=== PATIENT | male | born 1990 | race Caucasian/White ===

== ENCOUNTER 2017-09-08 15:05 | Observation (INO) | payer MEDICAID, SELFPAY ==
[2017-09-08 15:23] VITALS: BMI 20.5
[2017-09-08 15:29] VITALS: BP 144/102; PULSE 69; RESP 16; TEMP 36.8; O2SAT 100
--- NOTE | 2017-09-08 15:41 | PCM.HP.STD ---
Problem List (1) Opiate abuse, continuous Status: Acute History of Present Illness Date of Admission: 09/08/17 Chief Complaint: For opiate detox The patient is a 26 year old M with no significant past medical history. He was admitted to [facility] for detox from opiates. According to patient the past few years he has been taking about 30 mg of opiates daily. He snorts it and has never used IV. This is first time attempting rehab. He does not use any other drugs and denies use of alcohol, cocaine, heroin, or anything else. Patient started using after he was prescribed Percocet after he had surgery for broken facial bone and broken finger. He is currently unemployed. He has good support from his girlfriend who doesnt use, and none of his family members also use opiates. Review of systems otherwise negative. [] Past Medical History Allergies No Known Allergies Allergy (Verified 09/08/17 15:25) Home Medications: Ambulatory Orders Medication Instructions Recorded NK [NK] 09/08/17 Surgical History: - - finger surgery and surgery for broken facial bone Psychiatric History: No pertinent psych hx Lives: Spouse/ Significant Other, - Smoking Status: Current every day smoker Tobacco Use: Cigarettes Alcohol: None Drugs: - - Percocet - *Family History Maternal History Items: Heart Disease, Hypertension Review of Systems Constitutional: Denies: Chills, Fever, Weight Change Eyes: Reports: Blurred vision HEENT: Denies: Head Aches, Sinus Congestion, Sinus Drainage Cardiovascular: Denies: Chest Pain, Chest Tightness, Palpitations Respiratory: Denies: Cough, Shortness of breath at rest, Sputum production Gastrointestinal: Denies: Abdominal Pain, Constipation, Nausea, Vomiting Genitourinary: Denies: Dysuria Musculoskeletal: Denies: Joint Pain, Joint Tenderness Skin: Denies: Rash, Wounds Neurological: Denies: Numbness, Tingling, Focal weakness Psychiatric: Denies: Anxiety, Depression, Homicidal Ideations, Suicidal Ideations Hematologic/ Lymphatic: Denies: Easy Bruising, Easy Bleeding VTE Information - Inpt Only VTE Present on Admission: No VTE Mechan Device Prophylaxis: None VTE Pharm Prophylaxis ordered?: Yes - Physical Exam General: Alert, Oriented x3, Cooperative, No apparent distress HEENT: Atraumatic, PERRLA, EOMI, Normocephalic Oral: Moist Mucosa Neck: Supple, No JVD, Negative Carotid Bruits Lungs: Clear to auscultation, Normal air movement, No rhonchi, No wheeze, No rales Cardiovascular: Regular rate, Regular Rhythm, Normal S1, Normal S2, No murmurs Abdomen: Bowel Sounds Present, Soft, Non Tender, Non-Distended, No Hepato-splenomegaly, Passing Flatus Extremities: No clubbing, No cyanosis, No edema, Capillary Refill Less than 3 Seconds Skin: No rashes, No breakdown, - - no trackmarks noted. Extensive tattoos Musculoskeletal: No Tenderness to Palpation of Joints or Extremities Lymphatic: No Cervical, Supraclavicular, or Inguinal Adenopathy Neurological: Cranial nerves II-XII grossly intact, Motor Exam 5/5 strength throughout Psych/Mental Status: Normal Affect, Appropriate, Alert and oriented to time, place, person, mood and affect Vital Signs Temp Pulse Resp BP Pulse Ox 98.2 F 69 16 144/102 H 100 09/08/17 15:29 09/08/17 15:29 09/08/17 15:29 09/08/17 15:29 09/08/17 15:29 Oxygen Delivery Method Room Air Weight: 151 lb 0.266 oz Body Mass Index (BMI) 20.5 Assessment/Plan All Active Problems Opiate abuse, continuous (Acute) 26-year-old 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 Opiate abuse Last use around 9 PM yesterday. Uses 30 g of Percocet daily and snorts it. Will admit to [facility] to on the [facility] protocol Will start opiate withdrawal with buprenorphine taper Check CBC and CMP. 2. DVT prophlaxis: lovenox Code status: full code This note was generated with PHRQL dictation software. It may contain incorrect words, spelling, and punctuation that were not noted in checking the note before signing. I was informed at 17:58 that patient had signed out AGAINST MEDICAL ADVICE. Code Visit Inpatient E&M: 78132 Init Hosp L2
--- NOTE | 2017-09-08 15:46 | HP.PCM_ITS ---
Problem List (1) Opiate abuse, continuous Status: Acute History of Present Illness Date of Admission: 09/08/17 Chief Complaint: For opiate detox The patient is a 26 year old M with no significant past medical history. He was admitted to [facility] for detox from opiates. According to patient the past few years he has been taking about 30 mg of opiates daily. He snorts it and has never used IV. This is first time attempting rehab. He does not use any other drugs and denies use of alcohol, cocaine, heroin, or anything else. Patient started using after he was prescribed Percocet after he had surgery for broken facial bone and broken finger. He is currently unemployed. He has good support from his girlfriend who doesnt use, and none of his family members also use opiates. Review of systems otherwise negative. [] Past Medical History Allergies No Known Allergies Allergy (Verified 09/08/17 15:25) Home Medications: Ambulatory Orders Medication Instructions Recorded NK [NK] 09/08/17 Surgical History: - - finger surgery and surgery for broken facial bone Psychiatric History: No pertinent psych hx Lives: Spouse/ Significant Other, - Smoking Status: Current every day smoker Tobacco Use: Cigarettes Alcohol: None Drugs: - - Percocet - *Family History Maternal History Items: Heart Disease, Hypertension Review of Systems Constitutional: Denies: Chills, Fever, Weight Change Eyes: Reports: Blurred vision HEENT: Denies: Head Aches, Sinus Congestion, Sinus Drainage Cardiovascular: Denies: Chest Pain, Chest Tightness, Palpitations Respiratory: Denies: Cough, Shortness of breath at rest, Sputum production Gastrointestinal: Denies: Abdominal Pain, Constipation, Nausea, Vomiting Genitourinary: Denies: Dysuria Musculoskeletal: Denies: Joint Pain, Joint Tenderness Skin: Denies: Rash, Wounds Neurological: Denies: Numbness, Tingling, Focal weakness Psychiatric: Denies: Anxiety, Depression, Homicidal Ideations, Suicidal Ideations Hematologic/ Lymphatic: Denies: Easy Bruising, Easy Bleeding VTE Information - Inpt Only VTE Present on Admission: No VTE Mechan Device Prophylaxis: None VTE Pharm Prophylaxis ordered?: Yes - Physical Exam General: Alert, Oriented x3, Cooperative, No apparent distress HEENT: Atraumatic, PERRLA, EOMI, Normocephalic Oral: Moist Mucosa Neck: Supple, No JVD, Negative Carotid Bruits Lungs: Clear to auscultation, Normal air movement, No rhonchi, No wheeze, No rales Cardiovascular: Regular rate, Regular Rhythm, Normal S1, Normal S2, No murmurs Abdomen: Bowel Sounds Present, Soft, Non Tender, Non-Distended, No Hepato- splenomegaly, Passing Flatus Extremities: No clubbing, No cyanosis, No edema, Capillary Refill Less than 3 Seconds Skin: No rashes, No breakdown, - - no trackmarks noted. Extensive tattoos Musculoskeletal: No Tenderness to Palpation of Joints or Extremities Lymphatic: No Cervical, Supraclavicular, or Inguinal Adenopathy Neurological: Cranial nerves II-XII grossly intact, Motor Exam 5/5 strength throughout Psych/Mental Status: Normal Affect, Appropriate, Alert and oriented to time, place, person, mood and affect Vital Signs Temp Pulse Resp BP Pulse Ox 98.2 F 69 16 144/102 H 100 09/08/17 15:29 09/08/17 15:29 09/08/17 15:29 09/08/17 15:29 09/08/17 15:29 Oxygen Delivery Method Room Air Weight: 151 lb 0.266 oz Body Mass Index (BMI) 20.5 Assessment/Plan All Active Problems Opiate abuse, continuous (Acute) 26-year-old 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 Opiate abuse * Last use around 9 PM yesterday. Uses 30 g of Percocet daily and snorts it. * Will admit to [facility] to on the [facility] protocol * Will start opiate withdrawal with buprenorphine taper * Check CBC and CMP. * 2. DVT prophlaxis: lovenox Code status: full code This note was generated with Highfiveation software. It may contain incorrect words, spelling, and punctuation that were not noted in checking the note before signing. I was informed at 17:58 that patient had signed out AGAINST MEDICAL ADVICE. Code Visit Inpatient E&M: 92059 Init Hosp L2
[2017-09-08 16:05] VITALS: BP 117/73; PULSE 66; RESP 18; TEMP 37.3
[2017-09-08] MEDS: Methocarbamol 750 MG Tablet PO (16:08)
[2017-09-08] MEDS: Buprenorphine HCl 2 MG TAB.SUBL 4 MG SL (16:08)
--- NOTE | 2017-09-08 17:33 | NURSING ---
Nurse into check in on Pt he states that his entire body feels numb and he is unable to feel feet. Noted pt is able to walk with steady gait and is hold phone and talking. States he is not able to do this he cannot feel this way all the time states he will leave. AMA papers given and signed.
--- NOTE | 2017-09-08 19:01 | PCM.DC.SUM ---
Discharge Date and Diagnosis Date of Admission: 09/08/17 Date of Discharge: 09/08/17 - Primary Discharge Diagnosis opiate abuse Hospital Course and Treatment Operations: None Procedures: None Summary of Care Provided: The patient is a 26 year old M who was admitted via the [facility] protocol on 09/08/17 for opiate detox. Her to take about 30 mg of opiates daily and he is noted, not using IV. He was admitted and started on the buprenorphine withdrawal protocol. CBC and CMP were ordered. However within a couple of hours of admission, patient signed out AGAINST MEDICAL ADVICE. [] Discharge Diet: No Restrictions Discharge Activity: Return to Normal Activity May resume sexual activity in: No Restrictions Home Medications: Medications to take at Discharge NK [NK] 09/08/17 Primary Care Physician: Care Physician,No Primary [Primary Care Provider] - Disposition: Against Medical Advice Minutes spent on discharge:: 20 Patient Condition:: Stable Medical Necessity - Tobacco Use Smoking Status: Current every day smoker Tobacco Use: Cigarettes Meaningful Use Info Meaningful Use Diagnoses (Choose all that apply): None applicable Code Visit Inpatient E&M: 76982 Disch Hosp
--- NOTE | 2017-09-08 19:06 | DS.PCM_ITS ---
Discharge Date and Diagnosis Date of Admission: 09/08/17 Date of Discharge: 09/08/17 - Primary Discharge Diagnosis opiate abuse Hospital Course and Treatment Operations: None Procedures: None Summary of Care Provided: The patient is a 26 year old M who was admitted via the [facility] protocol on for opiate detox. Her to take about 30 mg of opiates daily and he is noted, not using IV. He was admitted and started on the buprenorphine withdrawal protocol. CBC and CMP were ordered. However within a couple of hours of admission, patient signed out AGAINST MEDICAL ADVICE. [] Discharge Diet: No Restrictions Discharge Activity: Return to Normal Activity May resume sexual activity in: No Restrictions Home Medications: Medications to take at Discharge NK [NK] 09/08/17 Primary Care Physician: Care Physician,No Primary [Primary Care Provider] - Disposition: Against Medical Advice Minutes spent on discharge:: 20 Patient Condition:: Stable Medical Necessity - Tobacco Use Smoking Status: Current every day smoker Tobacco Use: Cigarettes Meaningful Use Info Meaningful Use Diagnoses (Choose all that apply): None applicable Code Visit Inpatient E&M: 65240 Disch Hosp
== END 2017-09-08 17:51 | disposition left against medical advice (07) ==
PROVIDERS: Admitting Provider Student in an Organized Health Care Education/Training Program; Visit Provider Student in an Organized Health Care Education/Training Program
DX: F11.23 Opioid dependence with withdrawal (principal); F17.210 Nicotine dependence, cigarettes, uncomplicated
CPT/HCPCS: 99218; G0378; G0379